=== PATIENT | male | born 1955 | race Caucasian/White ===

== ENCOUNTER 2018-05-17 20:11 | Inpatient (IN) | payer MEDICARE, OTHER ==
[~2018-05-17] VITALS: Ht 162.6 cm; Wt 173.4 kg
[~2018-05-17 20:11] MED LIST: ACTOS45 MG PO; ALPHAGAN OP; ALPHAGAN OPHTH D5 ML OP; ALPHAGAN OPHTH D5 ML OU; AMARYL; AMARYL4 MG PO; APRESOLINE; ASPIRIN 81M81 MG/TA2 PO; BENICAR; CEFTIN500 MG PO; COLACE 100100 MG/CAP PO; COZAAR 50MG50 MG/TAB PO; COZAAR100 MG PO; FOLIC ACID 11 MG/TA1 PO; FUROSEMIDE40 MG PO; GABAPENTIN TAB600 MG PO; GABAPENTIN600 MG PO; GLIMEPIRIDE1 MG PO; GLUCOPHAGE XR500 M1 PO; GLUCOTROL10 MG PO; HCTZ 25MG TAB25 MG PO; HCTZ 25MG25 MG PO; HYDRALAZINE HC100 MG PO; HYDRALAZINE100 MG PO; HYGROTON50 MG PO; JANUVIA 100MG100 MG PO; K-LOR CON; KLOR-CON 1010 MEQ PO; LASIX 40MG TABL40 MG PO; LASIX 80MG TABL80 MG PO; LEVAQUIN 750MG750 M1 PO; LEVEMIR FLEXPEN SC; LOPRESSOR 225 MG/TAB PO; METFORMIN ER500 MG PO; METOPROLOL25 MG PO; MIRALAX PA17 GM/Dose PO; MORPHINE PO; MOTRIN 800800 MG/TAB PO; MS CONTIN 330 MG/TAB PO; NEPHROCAP PO; NEURONTIN600 MG/TAB PO; NORCO 325 MG-7.1 TAB PO; NORMODYNE300 MG PO; NORVASC 5MG5 MG/TAB PO; NOVOLOG 100U100 U/M1 SC; PERCOCET 5/321 UDTAB PO; PYRIDIUM200 M1 PO; REQUIP 0.5MG0.5 MG PO; REQUIP 1MG T1 MG/TAB PO; REQUIP1 MG PO; SYNTHROID 0.0.025 MG PO; TOUJEO300 U/ML SQ; TRILEPTAL 300M300 MG PO; TRILEPTAL300 MG PO; TYLENOL 325MG325 MG PO; VITAMIN D31000 I1 PO; XALATAN EYE DROPS OP; XALATAN EYE DROPS OU; XARELTO15 MG PO
[2018-05-17 21:01] LABS: BASO # 0.1 (0.0-0.2); BASO % 0.3 % (0.0-2.0); EOS # 0.1 (0.0-0.7); EOS % 0.4 % (0-4.0); GRAN # 13.7 (1.4-6.5); GRAN % 79.1 % (42.2-75.2); HEMOGLOBIN 10.4 g/dl (13.5-18.0); LYMPH % 11.7 % (20.0-51.0); MEAN CELL VOLUME 89 fl (80.0-100.0); MEAN CORPUSCULAR HEMOGLOBIN 27 pg (27.0-31.0); MEAN CORPUSCULAR HGB CONC 30 g/dl (33.0-37.0); MEAN PLATELET VOLUME 10.7 fl (7.4-10.4); MONO # 1.4 (0.1-0.6); PLATELET COUNT 289 K/mm3 (130-400); RED BLOOD COUNT 3.88 M/mm3 (4.20-5.60); REDCELL DISTRIBUTION WIDTH-CV 14.8 % (11.5-14.5)
[2018-05-17 21:02] LABS: HEMATOCRIT 34.4 % (42.0-52.0)
[2018-05-17 21:12] LABS: ARTERIAL BLD GAS O2 SATURATION 96.1 % (92-100); ARTERIAL BLD GAS TCO2 CT 32.1; ARTERIAL BLOOD GAS BASE EXCESS 5.1 (-2-2); ARTERIAL BLOOD GAS HCO3 30.6 meq/L (22-26); ARTERIAL BLOOD GAS PCO2 49.1 mmHg (35-45); ARTERIAL BLOOD GAS pH 7.41 (7.35-7.45)
[2018-05-17 21:21] LABS: ALBUMIN 3.8 gm/dL (3.5-5.0); BILIRUBIN,TOTAL 0.5 mg/dL (0.0-1.0); CALCIUM 9.5 mg/dL (8.4-10.2); CREATININE, serum 1.75 mg/dL (0.66-1.25); POTASSIUM 4.2 mmol/L (3.4-5.0); TOTAL PROTEIN 7.2 gm/dL (6.4-8.2)
[2018-05-17 21:41] LABS: COLLECTION METHOD CLEAN CATCH
[2018-05-17 21:47] LABS: MUCOUS Present /lpf; PH 5 (5-8); SQUAMOUS EPITHELIAL 0-2 /hpf; URINE APPEARANCE Clear; URINE BACTERIA None Seen /hpf; URINE BILIRUBIN Negative (NEGATIVE); URINE BLOOD Negative (NEGATIVE); URINE COLOR Yellow; URINE GLUCOSE Negative (NEGATIVE); URINE KETONE Negative (NEGATIVE); URINE LEUKOCYTE ESTERASE Negative (NEGATIVE); URINE NITRATE Negative (NEGATIVE); URINE PROTEIN(semi-quant) 2+ (NEGATIVE); URINE RBC 0-2 /hpf; URINE UROBILINOGEN Negative (NEGATIVE)
[2018-05-17] MEDS ORDERED: JANUVIA 100MG100 MG PO (21:47)
[2018-05-17] MEDS ORDERED: ULTRAM 50MG TAB50 MG PO (21:49)
[2018-05-17] MEDS ORDERED: CLARITIN 1010 MG/TAB PO (21:50)
[2018-05-18 01:06] VITALS: BP 153/71; PULSE 110; TEMP 98.5
[2018-05-18 04:18] VITALS: BP 135/74; PULSE 88; TEMP 98.2
[2018-05-18 06:45] LABS: BASO # 0.1 (0.0-0.2); BASO % 0.3 % (0.0-2.0); EOS # 0.1 (0.0-0.7); EOS % 0.3 % (0-4.0); GRAN # 10.8 (1.4-6.5); GRAN % 72.6 % (42.2-75.2); LYMPH # 2.6 (1.2-3.4); LYMPH % 17.6 % (20.0-51.0); MEAN CELL VOLUME 89 fl (80.0-100.0); MEAN CORPUSCULAR HGB CONC 30 g/dl (33.0-37.0); MEAN PLATELET VOLUME 11.2 fl (7.4-10.4); MONO # 1.3 (0.1-0.6); MONO % 8.4 % (1.7-9.3); PLATELET COUNT 258 K/mm3 (130-400); RED BLOOD COUNT 3.51 M/mm3 (4.20-5.60)
[2018-05-18 06:56] LABS: HEMATOCRIT 31.1 % (42.0-52.0); HEMOGLOBIN 9.3 g/dl (13.5-18.0); MEAN CORPUSCULAR HEMOGLOBIN 26 pg (27.0-31.0)
[2018-05-18 06:58] LABS: CALCIUM 8.6 mg/dL (8.4-10.2); CREATININE, serum 1.89 mg/dL (0.66-1.25); POTASSIUM 3.9 mmol/L (3.4-5.0)
[2018-05-18 07:09] VITALS: BP 141/68; PULSE 90; TEMP 98.5
[2018-05-18 11:06] LABS: ARTERIAL BLD GAS TCO2 CT 32.4; ARTERIAL BLOOD GAS BASE EXCESS 3.2 (-2-2); ARTERIAL BLOOD GAS HCO3 30.6 meq/L (22-26); ARTERIAL BLOOD GAS PCO2 60.7 mmHg (35-45); ARTERIAL BLOOD GAS pH 7.32 (7.35-7.45)
[2018-05-18 11:14] VITALS: BP 116/50; PULSE 74; TEMP 98.5
[2018-05-18 15:14] VITALS: BP 152/66; PULSE 69; TEMP 98.9
[2018-05-18 19:50] VITALS: BP 180/63; PULSE 88; TEMP 98.2
[2018-05-18 22:01] LABS: ARTERIAL BLD GAS O2 SATURATION 95.5 % (92-100); ARTERIAL BLD GAS TCO2 CT 32.6; ARTERIAL BLOOD GAS HCO3 30.8 meq/L (22-26); ARTERIAL BLOOD GAS PCO2 58.6 mmHg (35-45); ARTERIAL BLOOD GAS PO2 84.6 mmHg (80-100); ARTERIAL BLOOD GAS pH 7.34 (7.35-7.45)
[2018-05-19 00:40] VITALS: BP 162/69; PULSE 72; TEMP 98.4
[2018-05-19 04:03] VITALS: BP 121/52; PULSE 63; TEMP 98.5
[2018-05-19 07:56] VITALS: BP 145/57; PULSE 64; TEMP 98.5
[2018-05-19 10:00] LABS: ARTERIAL BLD GAS O2 SATURATION 96.9 % (92-100); ARTERIAL BLOOD GAS HCO3 28.4 meq/L (22-26); ARTERIAL BLOOD GAS PCO2 52.8 mmHg (35-45); ARTERIAL BLOOD GAS PO2 101.8 mmHg (80-100); ARTERIAL BLOOD GAS pH 7.35 (7.35-7.45)
[2018-05-19 10:01] LABS: BASO # 0.1 (0.0-0.2); BASO % 0.5 % (0.0-2.0); EOS # 0.1 (0.0-0.7); EOS % 0.8 % (0-4.0); GRAN # 7.9 (1.4-6.5); GRAN % 71.9 % (42.2-75.2); LYMPH # 2.1 (1.2-3.4); LYMPH % 18.9 % (20.0-51.0); MEAN CELL VOLUME 88 fl (80.0-100.0); MEAN CORPUSCULAR HGB CONC 31 g/dl (33.0-37.0); MEAN PLATELET VOLUME 10.6 fl (7.4-10.4); MONO # 0.8 (0.1-0.6); MONO % 7.4 % (1.7-9.3); PLATELET COUNT 266 K/mm3 (130-400); RED BLOOD COUNT 3.31 M/mm3 (4.20-5.60); REDCELL DISTRIBUTION WIDTH-CV 14.7 % (11.5-14.5)
[2018-05-19 10:14] LABS: CALCIUM 8.9 mg/dL (8.4-10.2); CREATININE, serum 1.61 mg/dL (0.66-1.25); POTASSIUM 3.5 mmol/L (3.4-5.0)
[2018-05-19 10:16] LABS: HEMATOCRIT 29.1 % (42.0-52.0); HEMOGLOBIN 8.9 g/dl (13.5-18.0); MEAN CORPUSCULAR HEMOGLOBIN 27 pg (27.0-31.0)
[2018-05-19 11:06] VITALS: BP 157/60; PULSE 63; TEMP 98.2
[2018-05-19 16:06] VITALS: BP 157/67; PULSE 71; TEMP 98.6
[2018-05-19 20:51] VITALS: BP 149/45; PULSE 71; TEMP 98.1
[2018-05-20 03:53] VITALS: BP 165/67; PULSE 564; TEMP 98.3
[2018-05-20 07:08] LABS: BASO # 0.1 (0.0-0.2); BASO % 0.5 % (0.0-2.0); EOS # 0.2 (0.0-0.7); EOS % 1.6 % (0-4.0); GRAN # 7.3 (1.4-6.5); GRAN % 66.4 % (42.2-75.2); LYMPH # 2.6 (1.2-3.4); LYMPH % 23.8 % (20.0-51.0); MEAN CELL VOLUME 90 fl (80.0-100.0); MEAN CORPUSCULAR HGB CONC 30 g/dl (33.0-37.0); MEAN PLATELET VOLUME 10.9 fl (7.4-10.4); MONO # 0.8 (0.1-0.6); MONO % 7.2 % (1.7-9.3); PLATELET COUNT 282 K/mm3 (130-400); RED BLOOD COUNT 3.21 M/mm3 (4.20-5.60); REDCELL DISTRIBUTION WIDTH-CV 14.7 % (11.5-14.5)
[2018-05-20 07:12] LABS: CALCIUM 8.8 mg/dL (8.4-10.2); CREATININE, serum 1.45 mg/dL (0.66-1.25); POTASSIUM 3.6 mmol/L (3.4-5.0)
[2018-05-20 07:16] LABS: HEMATOCRIT 28.9 % (42.0-52.0); HEMOGLOBIN 8.6 g/dl (13.5-18.0); MEAN CORPUSCULAR HEMOGLOBIN 27 pg (27.0-31.0)
[2018-05-20 07:39] LABS: ERYTHROCYTE SEDIMENTATION RATE 88 mm/hr (0-30)
[2018-05-20 08:07] VITALS: BP 148/63; PULSE 74; TEMP 98.4
[2018-05-20 11:14] VITALS: BP 172/71; PULSE 70; TEMP 98.4
== END 2018-05-20 13:12 | disposition home or self-care (01) | DRG 864 ==
LOC: COL.ER 20:11 → MEDICAL 21:50
PROVIDERS: Family Medicine; Internal Medicine Pulmonary Disease; Nurse Practitioner; Physician Assistant
DX: R50.9 Fever, unspecified (principal); J96.22 Acute and chronic respiratory failure with hypercapnia; N17.9 Acute kidney failure, unspecified; B37.49 Other urogenital candidiasis; I13.0 Hypertensive heart and chronic kidney disease with heart failure and stage 1 through stage 4 chronic kidney disease, or unspecified chronic kidney disease; I50.32 Chronic diastolic (congestive) heart failure; Z68.43 Body mass index [BMI] 50.0-59.9, adult; I48.92 Unspecified atrial flutter; E87.2 Acidosis; B37.2 Candidiasis of skin and nail; I27.22 Pulmonary hypertension due to left heart disease; N18.3 Chronic kidney disease, stage 3 (moderate); E11.22 Type 2 diabetes mellitus with diabetic chronic kidney disease; E66.01 Morbid (severe) obesity due to excess calories; Z85.520 Personal history of malignant carcinoid tumor of kidney; I48.91 Unspecified atrial fibrillation; Z87.891 Personal history of nicotine dependence
CPT/HCPCS: 99223-AI; 99232-AI; 99239; J0692; J1815; J3370; J7030; J7050; J7512

== ENCOUNTER 2021-06-30 09:20 | Inpatient (IN) | payer MEDICARE, OTHER ==
[2021-06-30] VITALS (83 sets, daily range): BP systolic 107–166; BP diastolic 66–129; PULSE 72–135; TEMP 97.7–99.8; O2SAT 31–100
[~2021-06-30] VITALS: Ht 165.1 cm; Wt 189.0 kg
[~2021-06-30 09:20] MED LIST changes: +CLARITIN 1010 MG/TAB PO; -COZAAR 50MG50 MG/TAB PO; +NEURONTIN300 MG/CAP PO; -NEURONTIN600 MG/TAB PO; -REQUIP 0.5MG0.5 MG PO; +ULTRAM 50MG TAB50 MG PO
[2021-06-30 09:36] LABS: BASO % 0.5 % (0.0-2.0); EOS # 0.2 K/mm3 (0.0-0.7); GRAN # 5.6 K/mm3 (1.4-6.5); GRAN % 68.1 % (42.2-75.2); LYMPH # 1.8 K/mm3 (1.2-3.4); LYMPH % 21.9 % (20.0-51.0); MEAN CELL VOLUME 87 fl (80.0-100.0); MEAN CORPUSCULAR HGB CONC 28 g/dl (33.0-37.0); MEAN PLATELET VOLUME 11.5 fl (7.4-10.4); MONO # 0.5 K/mm3 (0.1-0.6); MONO % 6.4 % (1.7-9.3); PLATELET COUNT 241 K/mm3 (130-400); RED BLOOD COUNT 3.19 M/mm3 (4.20-5.60); REDCELL DISTRIBUTION WIDTH-CV 15.8 % (11.5-14.5)
[2021-06-30 09:43] LABS: HEMATOCRIT 27.7 % (42.0-52.0); HEMOGLOBIN 7.7 g/dl (13.5-18.0); MEAN CORPUSCULAR HEMOGLOBIN 24 pg (27.0-31.0)
[2021-06-30 09:58] LABS: ALBUMIN 2.5 gm/dL (3.4-4.8); BILIRUBIN,TOTAL 0.2 mg/dL (0.2-1.2); CREATININE, serum 5.45 mg/dL (0.72-1.25); TOTAL PROTEIN 5.2 gm/dL (6.2-8.1)
[2021-06-30 10:18] LABS: TSH w REFLEX 2.547 uIU/mL (0.350-4.940)
[2021-06-30 10:22] LABS: TROPONIN-I 0.058 ng/mL (0.00-0.033)
[2021-06-30 10:23] LABS: COLLECTION METHOD CLEAN CATCH
[2021-06-30 10:37] LABS: MUCOUS Present /lpf; PH 5 (5-8); URINE APPEARANCE Cloudy; URINE BACTERIA Rare /hpf; URINE BILIRUBIN Negative (NEGATIVE); URINE BLOOD Negative (NEGATIVE); URINE COLOR Yellow; URINE GLUCOSE 2+ (NEGATIVE); URINE KETONE Negative (NEGATIVE); URINE LEUKOCYTE ESTERASE Negative (NEGATIVE); URINE NITRATE Negative (NEGATIVE); URINE PROTEIN(semi-quant) 3+ (NEGATIVE); URINE RBC 0-2 /hpf; URINE UROBILINOGEN Negative (NEGATIVE)
--- NOTE | 2021-06-30 13:06 | NUR ---
SW met with patient to discuss discharge plan. Patient's , Dalila, and pt's son were also at patient's bedside. Patient and live in a house in [place] that has a couple of steps to enter and a basement but pt does not utilize basement, he stays on the main level. Patient states he uses a cane mostly but he also has a walker, wheelchair and a walk-in tub. Patient's PCP is Dr. Vivi Newby and he receives his medications from [facility]. He states he has many prescriptions and most of them he can afford. SW to assist patient in obtaining some of his more expensive meds. Patient stated twice during this assessment to make sure he is classified as a DNR. Patient also states he has an MPOA and his is listed as his agent. SW will follow patient to address d/c needs.
--- NOTE | 2021-06-30 13:39 | NUR ---
SW was informed by patient's son, Alex, that patient has had a clear and deliberate plan of suicide. While talking with son, joined us and confirmed it. They informed this worker that patient called son this a.m. to say goodbye and had a plan of using their 22 caliber or 9 mm pistol to shoot himself, telling his fammily he is tired of "being a burden" to them. Son very tearful as he tells this worker that patient needs help and that he is NOT a burden. Dr. Giraldo and Elida aware. SW to continue following.
[2021-06-30] MEDS ORDERED: ZYLOPRIM 300MG300 MG PO (13:57)
[2021-06-30] MEDS ORDERED: TYLENOL 500MG500 MG PO (13:59)
[2021-06-30] MEDS ORDERED: VERELAN180 MG PO (14:00)
[2021-06-30] MEDS ORDERED: DEMADEX 20MG20 M1 PO (14:02)
[2021-06-30] MEDS ORDERED: XOPENEX HF0.045 MG/A IH (14:05)
--- NOTE | 2021-06-30 16:04 | NUR ---
PATIENT REFUSED DIALYSIS
[2021-06-30 16:15] LABS: PARTIAL THROMBOPLASTIN TIME 35.6 SECONDS (26.0-37.0)
[2021-07-01] VITALS (124 sets, daily range): BP systolic 101–156; BP diastolic 63–80; PULSE 95–110; TEMP 97.9–98.9; O2SAT 63–100
--- NOTE | 2021-07-01 04:18 | NUR ---
REPORT GIVEN TO CAROLYN RN MEDICAL FLOOR PATIENT TRANSFERRED BY STRETCHER TO ROOM 310
[2021-07-01] MEDS ORDERED: VITAMIN D31000 I1 PO (05:05)
[2021-07-01] MEDS ORDERED: CARDURA 2MG2 MG PO (05:06)
[2021-07-01] MEDS ORDERED: NEURONTIN300 MG/CAP PO (05:07)
[2021-07-01] MEDS ORDERED: INCRUSE EL62.5 MCG/A IH (05:09)
[2021-07-01] MEDS ORDERED: BACTROBAN15 GM TOP (05:18)
[2021-07-01] MEDS ORDERED: MIRALAX PA17 GM/Dose PO (05:18)
--- NOTE | 2021-07-01 06:00 | NUR ---
Patient arrived to medical floor from ICU at approximately 0445. Alert and oriented x 4, and able to make needs known. Assisted into bed by ambulating. Two assist with ambulation for safety. TLC to right IJ. INT to left AC. NS running at 100 ml/hr, Heparin drip at 2300 units/hr per orders. HepXa to be rechecked at 0930 per protocol. Denies having pain and discomfort. LS diminished. On oxygen at 3 L/min via NC. HRI, telemetry in place. BSAx4. Abdomen soft and non-tender. 3+ edema BLE. Generalized edema. Indwelling hughes catheter patent, with clear yellow urine. On renal diet. Blood sugar this morning 56. Given snack. Updated SHERRON Chapin. Patient voices no questions, needs, or concerns at this time. Sitting on side of bed as requested at this time. Call light within reach.
--- NOTE | 2021-07-01 06:14 | NUR ---
Patient's weight 196.7 bedscale. Rechecked with standing scale with result of 196.1. Updated SHERRON Chapin. No new orders. Blood sugar rechecked with result of 105. Assisted to recliner as requested with two assist. Call light within reach.
--- NOTE | 2021-07-01 09:36 | NUR ---
Initial visit; Patient thanked [employer] for looking in on him, listening and keeping him in [employer]'s prayers.
[2021-07-01 09:37] LABS: BASO # 0.1 K/mm3 (0.0-0.2); BASO % 0.5 % (0.0-2.0); EOS # 0.2 K/mm3 (0.0-0.7); EOS % 2.3 % (0-4.0); GRAN # 6.4 K/mm3 (1.4-6.5); GRAN % 68.6 % (42.2-75.2); LYMPH # 2.2 K/mm3 (1.2-3.4); LYMPH % 23.5 % (20.0-51.0); MEAN CELL VOLUME 84 fl (80.0-100.0); MEAN CORPUSCULAR HGB CONC 28 g/dl (33.0-37.0); MEAN PLATELET VOLUME 11.1 fl (7.4-10.4); MONO # 0.4 K/mm3 (0.1-0.6); MONO % 4.5 % (1.7-9.3); PLATELET COUNT 236 K/mm3 (130-400); RED BLOOD COUNT 3.22 M/mm3 (4.20-5.60); REDCELL DISTRIBUTION WIDTH-CV 15.9 % (11.5-14.5)
[2021-07-01 09:38] LABS: HEMATOCRIT 27.1 % (42.0-52.0); HEMOGLOBIN 7.7 g/dl (13.5-18.0); MEAN CORPUSCULAR HEMOGLOBIN 24 pg (27.0-31.0)
--- NOTE | 2021-07-01 10:03 | NUR ---
Patient sitting in recliner. C/o penile pain r/t to hughes. This RN administered PRN tylenol for the pain and replaced the securment device, as it seemed to be pulling. Patient stated that replacing the securment device helped. Patient's family in the room asking questions, all concerns addressed.
[2021-07-01 10:47] LABS: CALCIUM 8.3 mg/dL (8.4-10.2); CREATININE, serum 5.07 mg/dL (0.72-1.25); MAGNESIUM 2.6 mg/dL (1.6-2.6); POTASSIUM 5.4 mmol/L (3.5-4.5)
--- NOTE | 2021-07-01 17:52 | NUR ---
Patient has stayed in his recliner all day. Patient is very pleasant and has not had any c/o pain since this morning.
--- NOTE | 2021-07-01 21:28 | NUR ---
Patient assessed around 2019. Alert and oriented x 4, and able to make needs known. Denies having pain and discomfort at this time. Triple lumen to right IJ. Fluids and Heparin drip running per orders. Reports SOB and dyspnea with exertion. On oxygen at 3 L/min via NC, baseline for patient. LS CTA in upper lobes, diminished in lower. Respirations even and unlabored. HRI. Telemetry in place. BSAx4. Obese, firm abdomen. Indwelling hughes catheter patent, clear yellow urine. Patient has 3+ edema BLE, and generalized pitting edema all over. Scaling/flaking to BLE, with purple discoloration. Voices no questions, needs, or concerns at this time. In bed with call light within reach.
[2021-07-02 00:17] VITALS: BP 151/90; PULSE 109; TEMP 98.2
[2021-07-02 05:10] VITALS: BP 148/61; PULSE 94; TEMP 97.5
--- NOTE | 2021-07-02 05:56 | NUR ---
Patient given PRN APAP as requested for pain once this shift. Was in recliner for a while, now in bed. Heparin drip and IV fluids continue per orders. In bed with call light within reach.
--- NOTE | 2021-07-02 06:38 | NUR ---
Patient's BS 55. Given juice. Increased to 67. Given more juice. Report given to [facility] nurse at this time. Notified RN that it should be rechecked around 0645. Asymptomatic.
[2021-07-02 06:58] LABS: CALCIUM 8.2 mg/dL (8.4-10.2); CREATININE, serum 4.64 mg/dL (0.72-1.25)
[2021-07-02 07:21] VITALS: BP 155/99; PULSE 76; TEMP 97.3
[2021-07-02 08:50] LABS: BASO % 0.5 % (0.0-2.0); EOS # 0.2 K/mm3 (0.0-0.7); EOS % 2.3 % (0-4.0); GRAN # 4.9 K/mm3 (1.4-6.5); GRAN % 61.2 % (42.2-75.2); LYMPH # 2.3 K/mm3 (1.2-3.4); LYMPH % 28.4 % (20.0-51.0); MEAN CELL VOLUME 84 fl (80.0-100.0); MEAN CORPUSCULAR HGB CONC 28 g/dl (33.0-37.0); MEAN PLATELET VOLUME 12.2 fl (7.4-10.4); MONO # 0.6 K/mm3 (0.1-0.6); MONO % 7.1 % (1.7-9.3); PLATELET COUNT 254 K/mm3 (130-400); RED BLOOD COUNT 3.15 M/mm3 (4.20-5.60); REDCELL DISTRIBUTION WIDTH-CV 16.2 % (11.5-14.5)
[2021-07-02 08:52] LABS: HEMATOCRIT 26.6 % (42.0-52.0); HEMOGLOBIN 7.5 g/dl (13.5-18.0); MEAN CORPUSCULAR HEMOGLOBIN 24 pg (27.0-31.0)
--- NOTE | 2021-07-02 09:20 | NUR ---
Initial visit; Patient thanked Scout Leaser for stopping by to inquire how he is doing. He stated he had a good day yesterday and appeared to be in good spirits today.
[2021-07-02 11:23] VITALS: BP 138/87; PULSE 86; TEMP 97.8
--- NOTE | 2021-07-02 13:44 | NUR ---
CEASAR received a phone call from Shaquille automatic driller and reamer, with the patient's PCP. Shaquille reports that the patient and his family reached out to them and they would be interested in home health. CEASAR met with the patient and his daughter, Lena, to review the above. The patient was sleeping. Lena reports that her mother will be back later today and that they could call [facility] once she arrives to review discharge plan. CEASAR provided Lena with [facility]'s phone number and [employer]'s list of home health agencies that serve [place].
[2021-07-02 16:08] VITALS: BP 137/81; PULSE 91; TEMP 98.5
--- NOTE | 2021-07-02 16:27 | NUR ---
The patient's , Dalila, contacted CEASAR. CEASAR updated Dalila on therapy's recommendation for HH vs SB vs IPR. Dalila reports that she would prefer for the patient to return home and that they would be interested in home health. She reports that she looked over the list and would prefer [facility]. CEASAR faxed a referral to [facility]. Awaiting screen.
--- NOTE | 2021-07-02 16:31 | NUR ---
Patient's Hep XA came back at 0.43, which is goal. No change was made from the heparin rate; It remains at 2,450 units/hr. Next Hep XA ordered for 2100.
--- NOTE | 2021-07-02 20:00 | NUR ---
Report received, assumed care for retail shift manager. Sitting up in chair watching TV. Assessment complete. A&Ox4. Denies nausea/pain. Short of air with activity. O2@3L/NC. States he hasnt had a bowel movement in three days, requesting miralax. Will call for new orders. Heparin infusing at 24.5mls/hr to right IJ triple lumen. NS@100mls/hr. 24 hour urine in process. Plan of care discussed for this shift to include lab draws/coumadin bridge/and urine collection. Verbalizes understanding/denies needs. Call light in reach. Will monitor.
[2021-07-02 20:42] VITALS: BP 131/71; PULSE 109; TEMP 98.6
[2021-07-03] VITALS (7 sets, daily range): BP systolic 129–163; BP diastolic 53–82; PULSE 71–102; TEMP 97.4–98.7
--- NOTE | 2021-07-03 00:23 | NUR ---
Assisted to bed with two/three assist. Tolerated well.
--- NOTE | 2021-07-03 02:38 | NUR ---
Called out c/o of bilat feet cramping. Sat on side of bed for 10 minutes then requested to go back to chair. Ambulated back to chair-standby/walker-tolerated well.
--- NOTE | 2021-07-03 04:20 | NUR ---
Called to desk requesting tylenol. States pain in shoulders is unbearable. Still early for tylenol dose so spoke with MILAGROS StewartVOEL-[id number] orders received and initiated. Denies any other current questions/concerns. Call light in reach. Will monitor.
[2021-07-03 06:57] LABS: BASO # 0.1 K/mm3 (0.0-0.2); BASO % 0.6 % (0.0-2.0); EOS # 0.2 K/mm3 (0.0-0.7); EOS % 2.6 % (0-4.0); GRAN # 4.9 K/mm3 (1.4-6.5); GRAN % 60.7 % (42.2-75.2); LYMPH # 2.3 K/mm3 (1.2-3.4); LYMPH % 28.6 % (20.0-51.0); MEAN CELL VOLUME 87 fl (80.0-100.0); MEAN CORPUSCULAR HGB CONC 28 g/dl (33.0-37.0); MONO # 0.6 K/mm3 (0.1-0.6); MONO % 6.9 % (1.7-9.3); PLATELET COUNT 230 K/mm3 (130-400); RED BLOOD COUNT 3.13 M/mm3 (4.20-5.60)
[2021-07-03 07:00] LABS: HEMATOCRIT 27.2 % (42.0-52.0); HEMOGLOBIN 7.5 g/dl (13.5-18.0); INR 1.2 (0.8-3.0); MEAN CORPUSCULAR HEMOGLOBIN 24 pg (27.0-31.0); PROTHROMBIN TIME 13.1 SECONDS (9.7-12.8)
[2021-07-03 07:12] LABS: CALCIUM 8.7 mg/dL (8.4-10.2); CREATININE, serum 4.31 mg/dL (0.72-1.25); MAGNESIUM 2.7 mg/dL (1.6-2.6)
--- NOTE | 2021-07-03 09:30 | NUR ---
Pt with RT upon entry, introduced self to patient, pt stated pain currently at 6/10 in bilateral shoulders, more so on right shoulder, pt states normal painin shoulders is 4/10, gave acetaminophen prn per order. Pt in no apparent distress at this time. All pt questions answered, including biofreeze pt would like to bring to put on shoulders, notified RN, informed pt that we need a doctor's order before we can administer and will contact provider about it. Call light within reach.
--- NOTE | 2021-07-03 11:21 | NUR ---
Liliana, at [facility], reports that they are able to accept the patient for services. SW to update the patient and his .
--- NOTE | 2021-07-03 14:13 | NUR ---
Returned from lunch at 1245, went to give insulin, noticed insulin was possibly contaminated, handed off to instructor and charge nurse. Notified primary RN.
--- NOTE | 2021-07-03 14:15 | NUR ---
Primary nurse was assisted with [phone] patient care by [facility] Ramandeep Martinez and [employer] instructor Sana Oshea MSN, RN
[2021-07-03] MEDS ORDERED: BIOFREEZE 0.2%-1 GE1 TOP (14:17)
--- NOTE | 2021-07-03 16:02 | NUR ---
Patient has moved from the bed to the recliner once today with the assistance of 2. Patient c/o shoulder pain and was given PRN tylenol. 24Hr urine is still being collected and remains on ice; Collection will end at 1830. Patient's has been at the bedside most of the day, assisting the patient with many of his needs.
[2021-07-03 19:49] LABS: URINE TOTAL VOLUME - 24 HRS 3000 mL/24 hr
[2021-07-03 19:50] LABS: URINE TOTAL VOLUME 3000 mL
[2021-07-03 20:23] LABS: CREATININE, serum 4.08 mg/dL (0.72-1.25)
--- NOTE | 2021-07-03 22:09 | NUR ---
Patient assessed around 2019. Alert and oriented, and able to make needs known. Denies pain and discomfort at this time. TLC to right IJ. Heparin drip running per orders. D/C'd IV fluids per orders. HRI. Telemetry in place. Generalized edema. 3+ BLE. Scaling/flaking, with purple discoloration to BLE. Complained of constipation. Given PRN Miralax as requested. Voices no further questions, needs, or concerns at this time. In recliner with call light within reach.
--- NOTE | 2021-07-03 23:37 | NUR ---
Patient complaining of right shoulder pain. Given PRN APAP as requested for pain at this time.
[2021-07-04 04:01] VITALS: BP 163/80; PULSE 88; TEMP 97.5
--- NOTE | 2021-07-04 05:45 | NUR ---
Patient has been given PRN APAP twice this shift for right shoulder pain. Continues on Heparin drip per orders. Labs drawn this morning. Voices no questions, needs, or concerns at this time. In recliner with call light within reach.
[2021-07-04 06:42] LABS: BASO % 0.4 % (0.0-2.0); EOS # 0.2 K/mm3 (0.0-0.7); EOS % 2.1 % (0-4.0); GRAN # 6.3 K/mm3 (1.4-6.5); GRAN % 65.7 % (42.2-75.2); LYMPH # 2.3 K/mm3 (1.2-3.4); LYMPH % 23.7 % (20.0-51.0); MEAN CELL VOLUME 88 fl (80.0-100.0); MEAN CORPUSCULAR HGB CONC 27 g/dl (33.0-37.0); MONO # 0.7 K/mm3 (0.1-0.6); MONO % 7.6 % (1.7-9.3); PLATELET COUNT 240 K/mm3 (130-400); RED BLOOD COUNT 3.21 M/mm3 (4.20-5.60)
[2021-07-04 06:45] LABS: HEMATOCRIT 28.2 % (42.0-52.0); HEMOGLOBIN 7.6 g/dl (13.5-18.0); MEAN CORPUSCULAR HEMOGLOBIN 24 pg (27.0-31.0)
--- NOTE | 2021-07-04 06:45 | NUR ---
PT SLEEPING IN RECLINER AT THIS TIME. WILL RETURN FOR MORNING ROUNDS.
[2021-07-04 06:59] LABS: INR 1.3 (0.8-3.0); PROTHROMBIN TIME 14.1 SECONDS (9.7-12.8)
[2021-07-04 07:00] LABS: CALCIUM 8.9 mg/dL (8.4-10.2); CREATININE, serum 3.93 mg/dL (0.72-1.25); MAGNESIUM 2.8 mg/dL (1.6-2.6); PHOSPHOROUS 5.9 mg/dL (2.3-4.7); POTASSIUM 5.1 mmol/L (3.5-4.5)
[2021-07-04 08:28] VITALS: BP 113/71; PULSE 79; TEMP 98.4
[2021-07-04 08:55] VITALS: BP 132/70; PULSE 117; TEMP 97.4
--- NOTE | 2021-07-04 10:24 | NUR ---
Patient awake upon entry with RN, introduced self, answered patient questions. Pt has edema on trunk and legs and SOB on exertion which is normal for pt per pt. Pt is in no apparent distress at this time. call light within reach, in room about 0930/1000 this am.
[2021-07-04 11:39] VITALS: BP 124/89; PULSE 60; TEMP 97.7
--- NOTE | 2021-07-04 13:45 | NUR ---
CEASAR met with the patient and his , Dalila, to follow up and update on [facility]'s acceptance. Dalila inquired about whether [facility] provides ready to go meals. CEASAR contacted Liliana, at [facility], to follow up on this. Liliana reports that they do not do take home or ready to go meals, but can do meal prep and personal shopping. CEASAR to update Dalila. CEASAR did inform Dalila about [employer] and provided her with their phone number. *Discharge plan: home with home health*
--- NOTE | 2021-07-04 13:55 | NUR ---
Primary nurse was assisted with [phone] patient care by [employer] student Ramandeep Martinez and [employer] instructor Sana Oshea MSN, RN
[2021-07-04 16:50] VITALS: BP 153/72; PULSE 85; TEMP 97.5
--- NOTE | 2021-07-04 19:06 | NUR ---
REPORT GIVEN TO PHU DOMINIQUE
[2021-07-04 19:49] VITALS: BP 145/72; PULSE 101; TEMP 98.2
--- NOTE | 2021-07-04 20:30 | NUR ---
Patient is in the chair, multiple pillows in his back, with multiple blankets covering him. Alert and oriented x 4, VSS, Hep drip stopped by distal oclusion. Tubbing flushed and reestarted. Abdomen distended, ble with crusting and cellulitis. Complains of pain in his right shoulder. Tylenol provided. NC with 3L O2. Tele in place. Assessment completed, meds provided. No further needs at this time. Call light within reach.
[2021-07-05] VITALS (8 sets, daily range): BP systolic 131–161; BP diastolic 52–93; PULSE 94–106; TEMP 97.4–98.7
--- NOTE | 2021-07-05 06:28 | NUR ---
Patient has been resting all night in the chair. Hep drip continues at the same rate. Waiting for lab hep xa to adjust or continue. Shift report will be given to day shift nurse.
[2021-07-05 06:43] LABS: BASO # 0.1 K/mm3 (0.0-0.2); BASO % 0.6 % (0.0-2.0); EOS # 0.2 K/mm3 (0.0-0.7); EOS % 2.2 % (0-4.0); GRAN # 6.2 K/mm3 (1.4-6.5); GRAN % 67.7 % (42.2-75.2); LYMPH # 1.9 K/mm3 (1.2-3.4); MEAN CELL VOLUME 86 fl (80.0-100.0); MEAN CORPUSCULAR HGB CONC 28 g/dl (33.0-37.0); MEAN PLATELET VOLUME 11.5 fl (7.4-10.4); MONO # 0.7 K/mm3 (0.1-0.6); MONO % 7.9 % (1.7-9.3); PLATELET COUNT 223 K/mm3 (130-400); RED BLOOD COUNT 3.19 M/mm3 (4.20-5.60); REDCELL DISTRIBUTION WIDTH-CV 16.2 % (11.5-14.5)
[2021-07-05 06:46] LABS: HEMATOCRIT 27.5 % (42.0-52.0); HEMOGLOBIN 7.6 g/dl (13.5-18.0); MEAN CORPUSCULAR HEMOGLOBIN 24 pg (27.0-31.0)
[2021-07-05 06:53] LABS: INR 1.6 (0.8-3.0); PROTHROMBIN TIME 18.3 SECONDS (9.7-12.8)
[2021-07-05 07:00] LABS: CALCIUM 9.1 mg/dL (8.4-10.2); CREATININE, serum 3.63 mg/dL (0.72-1.25)
--- NOTE | 2021-07-05 21:30 | NUR ---
Patient is in bed, alert and oriented x 4, VSS, reports some pain in the right shoulder, tylenol provided. Tele in place, afib. Hep drip running. 25.5 ml/hr. 3LNC. Assessment completed, meds provided. No further needs at this time. Call light within reach.
--- NOTE | 2021-07-06 01:39 | NUR ---
Patient care, medication administration and nursing documentation occurred during a Daylight Savings Time Change.
[2021-07-06 04:37] VITALS: BP 135/68; PULSE 101; TEMP 98.3
--- NOTE | 2021-07-06 06:17 | NUR ---
Patient stayed for a couple of hours in bed, then asked for help to be transfered to the chair where he were the rest of the night. Patient has been stable. Continues with the hep drip according to protocol. Complains of pain in right shoulder. Tylenol provided. All needs met. Shift report will be given to day RN.
[2021-07-06 07:06] LABS: BASO % 0.5 % (0.0-2.0); EOS # 0.2 K/mm3 (0.0-0.7); EOS % 2.5 % (0-4.0); GRAN # 5.2 K/mm3 (1.4-6.5); GRAN % 62.4 % (42.2-75.2); LYMPH # 2.1 K/mm3 (1.2-3.4); LYMPH % 25.6 % (20.0-51.0); MEAN CELL VOLUME 85 fl (80.0-100.0); MEAN CORPUSCULAR HGB CONC 28 g/dl (33.0-37.0); MEAN PLATELET VOLUME 11.7 fl (7.4-10.4); MONO # 0.7 K/mm3 (0.1-0.6); MONO % 8.3 % (1.7-9.3); PLATELET COUNT 215 K/mm3 (130-400); RED BLOOD COUNT 3.15 M/mm3 (4.20-5.60); REDCELL DISTRIBUTION WIDTH-CV 16.4 % (11.5-14.5)
[2021-07-06 07:18] LABS: HEMATOCRIT 26.8 % (42.0-52.0); HEMOGLOBIN 7.4 g/dl (13.5-18.0); MEAN CORPUSCULAR HEMOGLOBIN 23 pg (27.0-31.0)
[2021-07-06 07:19] LABS: INR 2.2 (0.8-3.0); PROTHROMBIN TIME 24.7 SECONDS (9.7-12.8)
[2021-07-06 07:28] LABS: CALCIUM 9.4 mg/dL (8.4-10.2); CREATININE, serum 3.64 mg/dL (0.72-1.25)
[2021-07-06 07:46] VITALS: BP 148/76; PULSE 106; TEMP 97.3
--- NOTE | 2021-07-06 09:30 | NUR ---
Patient alert and oriented, answers questions appropriately. See assessment. BLE with 2+ edema noted. Moderate redness noted to BLE, no drainage, skin extremely dry. Patient c/o numbness to BLE. BLE pulses 1+. FWB. Frobes catheter in place, patent, draining clear yellow urine. No c/o at this time.
[2021-07-06] MEDS ORDERED: COUMADIN 5MG5 MG/TAB PO (10:01)
[2021-07-06] MEDS ORDERED: PHOS LO PO (10:04)
--- NOTE | 2021-07-06 10:40 | NUR ---
CEASAR update: Notified of DC, CEASAR faxed DC orders to [facility] for Home health services. NF.
--- NOTE | 2021-07-06 11:08 | NUR ---
Forbes catheter removed per Drs order. Kasey-care completed.
[2021-07-06 11:18] VITALS: BP 131/76; PULSE 94; TEMP 97.1
--- NOTE | 2021-07-06 15:30 | NUR ---
RIJ removed per Drs order. Redness noted at suture insertion site, area cleansed well. Patient remained flat 30 min post RIJ removal. Tolerated well.
[2021-07-06 15:50] VITALS: BP 147/72; PULSE 101; TEMP 98.1
--- NOTE | 2021-07-06 16:32 | NUR ---
Discharge instructions reviewed with patient and family, verbalized understanding. Discharged via wheelchair to auto/home with family at 1620.
== END 2021-07-06 16:20 | disposition home health service (06) | DRG 682 ==
LOC: COL.ER 09:20 → MEDICAL 10:23 → ICU 10:23 → MEDICAL 07-01 04:09
PROVIDERS: Emergency Medicine; Internal Medicine; Internal Medicine Nephrology; Physician Assistant; ADMIT Internal Medicine
PROC: 05HM33Z Insertion of Infusion Device into Right Internal Jugular Vein, Percutaneous Approach (ICD-10-PCS; principal; 2021-06-30)
DX: N17.9 Acute kidney failure, unspecified (principal); G93.41 Metabolic encephalopathy; I13.0 Hypertensive heart and chronic kidney disease with heart failure and stage 1 through stage 4 chronic kidney disease, or unspecified chronic kidney disease; I50.32 Chronic diastolic (congestive) heart failure; J96.11 Chronic respiratory failure with hypoxia; I48.92 Unspecified atrial flutter; I48.20 Chronic atrial fibrillation, unspecified; Z68.44 Body mass index [BMI] 60.0-69.9, adult; E87.5 Hyperkalemia; E66.01 Morbid (severe) obesity due to excess calories; Z66 Do not resuscitate; E11.51 Type 2 diabetes mellitus with diabetic peripheral angiopathy without gangrene; Z90.5 Acquired absence of kidney; E11.22 Type 2 diabetes mellitus with diabetic chronic kidney disease; N18.9 Chronic kidney disease, unspecified; G47.33 Obstructive sleep apnea (adult) (pediatric); E11.65 Type 2 diabetes mellitus with hyperglycemia; D50.9 Iron deficiency anemia, unspecified; E03.9 Hypothyroidism, unspecified; F32.A Depression, unspecified; I27.20 Pulmonary hypertension, unspecified; Z79.4 Long term (current) use of insulin; D63.8 Anemia in other chronic diseases classified elsewhere; E83.39 Other disorders of phosphorus metabolism; E11.649 Type 2 diabetes mellitus with hypoglycemia without coma; M10.9 Gout, unspecified; E11.40 Type 2 diabetes mellitus with diabetic neuropathy, unspecified; R79.89 Other specified abnormal findings of blood chemistry; Z79.01 Long term (current) use of anticoagulants; Z20.822 Contact with and (suspected) exposure to COVID-19
CPT/HCPCS: 99223-AI; 99232-AI; 99233-AI; 99239; J0610; J0696; J1644; J1815; J7030